=== PATIENT | female | born 2005 | race Caucasian/White ===

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

== ENCOUNTER 2024-12-07 08:51 | Emergency (ER) | payer OTHER, SELFPAY ==
--- OUTSIDE RECORDS SUMMARY | 2009-01-04 04:00 | XMS_ITS | Continuity of Care Document ---
Author Organization [facility] Address [address] [place] [address] [address] [place] [address] Phone Care Team Providers Care Side Guider Name Role Phone Guzmán OD, Saroj Unavailable Unavailable Procedures Procedure Date Eye Exam & Treatment Refraction Advance Directives Directive Yes / No Effective Date File Name No Information Encounters Encounter Description Practice Location Reason(s) For Visit Diagnoses Date Provider Providers Copied on Encounter [facility], [id number] [place] [address] [address], [place], [place], [id number], [place] tel:[phone] SEC [facility] No Information [phone] Guzmán OD Saroj. [address] [facility] [address] , [address], [place], [address], [place]. tel:[phone] Family History Family Member Type Diagnosis Age At Onset No Information Payers Payer name Insurance type Covered constitution party ID Authoriza tion(s) Medicaid [facility] [id number] Social History Type Description Quantity Date Captured Comments Sex Female Smoking Status No Information Chief Complaint And Reason For Visit No Information Reason For Referral Reason For Referral No Information History Of Present Illness Encounter Date Complaint History Of Prese nt Illness No Information Functional Status Date Functional Assessmen t No Information Instructions Date Instruction Additional Infor mation No Information Assessments Type Assessment Date No Information Patient Care Teams Name Effective Dates (start - stop) Status Members No Information
[2024-12-07 09:01] VITALS: BP 132/84; PULSE 76; RESP 15; TEMP 36.4; O2SAT 99
--- OUTSIDE RECORDS SUMMARY | 2024-12-07 09:11 | XMS_ITS | Clinical Summary ---
Author Organization [facility] Address [address] [place] [address] Care Team Providers Care Cash Office Worker Name Role Phone Maxine Feldman Bartolome HORNER-MANAGER BUSINESS Primary Care Provider + Source Comments [facility],non-owned Affiliates and Associated Physician Practices is amultiple site organization consisting of ambulatory clinics and hospital sitesin [place], [place], [place] and [place]. This disclosure is being madepursuant to the Care Everywhere program and may not contain all information available regarding this patient. Last updated 17.[facility] Allergies Active Allergy Reactions Criticality Noted Date Comments Sulfamethoxazole W-Trimethoprim Rash Low 09/2011 Medications * Be aware that medications may not be up to date on this document. Alwaysverify current medications with the patient. acetaminophen (TYLENOL) 500 MG tablet Take 1 Tab by mouth every 4 hours as needed for Fever or Pain Maximum allowable Acetaminophen amount = 4 Grams (4000 mg) / 24 hours. 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 syndrome 06/05/2015 Contusion of foot, right 12/16/2014 Fracture of fifth metatarsal bone 02/15/2014 Nondisplaced fracture of fifth right metatarsal bone 01/25/2014 Fever 04/16/2011 Bilateral anterior knee pain Patellofemoral stress syndrome of both knees Acute pain of both knees Family History Medical History Relation Name Comments Rheumatological Disease Maternal Grandmother Arrhythmia Mother svt Rheumatological Disease Mother CVA<55(male) Neg Hx CVA<65(female) Neg Hx Cardiomyopathy Neg Hx Congenital Heart defect Neg Hx Heart Surgery Neg Hx Long QT Syndrome Neg Hx NV<55(male) Neg Hx NV<65(female) Neg Hx Marfan Syndrome Neg Hx Pacemaker Neg Hx Sudd. <30 Neg Hx Relation Name Status Comments Maternal Grandmother Mother Social History Tobacco Use Types Packs/Day Years Used Date Smoking Tobacco: Never Smokeless Tobacco: Never Alcohol Use Standard Drinks/Week Comments No 0 (1 standard drink = 0.6 oz pur e alcohol) Comments No Sex and Gender Information Value Date Recorded Sex Assigned at Not on file Legal Sex Female 1:06 PM STAFF PHYSICAL THERAPY ASSISTANT Gender Identity Not on file Sexual Orientation Not on file Last Filed Vital Signs Vital Sign Reading Time Taken Comments Blood Pressure 97/57 04/06/2017 2:35 AM STAFF PHYSICAL THERAPY ASSISTANT Pulse 98 04/06/2017 2:35 AM STAFF PHYSICAL THERAPY ASSISTANT Temperature 37 C (98.6 F) 04/06/2017 2:35 AM STAFF PHYSICAL THERAPY ASSISTANT Respiratory Rate 18 04/06/2017 2:35 AM STAFF PHYSICAL THERAPY ASSISTANT Oxygen Saturation 100% 12/15/2014 11:29 AM CDT Inhaled Oxygen Concentration - - Weight 58.7 kg (129 lb 6.6 oz) 04/06/2017 12:41 AM STAFF PHYSICAL THERAPY ASSISTANT Height 146 cm (4' 9.48) 08/04/2015 9:57 AM CDT Body Mass Index - - Plan of Treatment Health Maintenance Due Date Last Done Comments HIV SCREENING 07/17/2018 HPV VACCINE (1 - 3-dose series) 07/17/2018 CHLAMYDIA/GONORRHEA SCREENING 2019 MENINGOCOCCAL (Group B) VACCINE SHARED DECISION-MAKING (1 of 2 - Standard) 2019 HEPATITIS C SCREENING 07/13/2021 DTAP/TDAP/TD VACCINES (1 - Tdap) 07/17/2022 HEPATITIS B VACCINE (1 of 3 - 19+ 3-dose series) 07/17/2022 DEPRESSION SCREENING 03/10/2024 COVID-19 VACCINE (1 - 2023-2 5 season) 2024 INFLUENZA VACCINE (#1) 2024 5, 02/08/2014 ZOSTER VACCINE (1 of 2) 07/17/2053 HIB VACCINE Aged Out No longer eligi ble based on patient's age to complete this topic MENINGOCOCCAL GROUPS A/C/Y/W VACCINE Aged Out No longer eligible b ased on patient's age to complete this topic PNEUMOCOCCAL VACCINE Aged Out No long er eligible based on patient's age to complete this topic Insurance [facility] Care Teams Cash Office Worker Relationship Specialty Start Date End Date Maxine Feldman, MECHANICAL ENGINEERING INTERN-MANAGER BUSINESS [address] [place] [address] [address] [place] [address] PCP - General Nurse Practitioner 01/24/14
--- NOTE | 2024-12-07 09:28 | ED_ITS ---
HPI - URI/Sore Throat General Chief Complaint: Upper Respiratory Infection Stated Complaint: also congested Time Seen by Provider: 12/07/24 09:04 History of Present Illness HPI Narrative: Patient is a 23-year-old female who presents to the ER with complaints of congestion. She reports 2 days ago she woke up with a sore, swollen throat. Patient reports last night she became congested and has had difficulty breathing through her nose. She endorses a history of asthma as a child but those symptoms have resolved in adulthood. Patient denies any recent fevers, shortness of breath, wheezing, or difficulty swallowing. Related Data Home Medications ?Medication ?Instructions ?Recorded ?Confirmed ?Last Taken ?Type aspirin 81 mg chewable tablet 81 mg PO DAILY 05/21/21 05/21/21 05/20/21 History 81 mg folic acid 1 mg tablet 1 mg DAILY 05/21/21 05/21/21 05/20/21 History 1 tablet Allergies Allergy/AdvReac Type Severity Reaction Status Date / Time sulfamethoxazole Allergy Unknown Unknown Verified 12/07/24 09:03 trimethoprim Allergy Unknown Unknown Verified 12/07/24 09:03 Review of Systems Review of Systems: All systems reviewed & are unremarkable except as noted in HPI and below Exam Narrative: GENERAL: Well appearing, well-nourished, non-toxic, in no acute distress. HEAD: Normocephalic, atraumatic. Slightly red throat with no notable edema. NECK: Supple. No adenopathy, no masses. RESPIRATORY: Airway patent, respirations nonlabored. Clear to auscultation bilaterally, no rales, rhonchi, wheezing. CARDIOVASCULAR: Regular rate and rhythm without murmurs, rubs, or gallops. Peripheral pulses 2+ and equal bilaterally. ABDOMINAL: Soft, nontender, nondistended, no hepatosplenomegaly. Normoactive BS. MUSCULOSKELETAL: Moves all extremities. Strength/ROM intact without gross deformities. SKIN: Warm, dry, normal color. No rashes. NEURO: A&O X3. Speech clear. Cranial nerves II-XII intact. No ataxic movements. PSYCHIATRIC: Appropriate mood and affect. Normal interaction. Course Vital Signs Vital signs: Vital Signs Temperature 36.4 C 12/07/24 09:01 Pulse Rate 76 12/07/24 09:01 Respiratory Rate 15 12/07/24 09:01 Blood Pressure 132/84 12/07/24 09:01 Pulse Oximetry 99 12/07/24 09:01 Oxygen Delivery Room Air 12/07/24 09:01 Temperature 36.4 C 12/07/24 09:01 Pulse Rate 76 12/07/24 09:01 Respiratory Rate 15 12/07/24 09:01 Blood Pressure 132/84 12/07/24 09:01 Pulse Oximetry 99 12/07/24 09:01 Oxygen Delivery Room Air 12/07/24 09:01 MDM - URI/Sore Throat MDM Narrative Medical decision making narrative: Patient is a 23-year-old female who presents to the ER with complaints of congestion. She reports 2 days ago she woke up with a sore, swollen throat. Patient reports last night she became congested and has had difficulty breathing through her nose. She endorses a history of asthma as a child but those symptoms have resolved in adulthood. Patient denies any recent fevers, shortness of breath, wheezing, or difficulty swallowing. Labs Ordered: COVID/flu/RSV swab, strep swab Imaging Ordered: None necessary Medications Ordered: None necessary Diagnosis: Upper respiratory infection Patient Education/Shared MDM: Results of lab work shared with patient. Patient strongly advised to maintain hydration status upon discharge and follow-up with her PCP as needed. She will be discharged home with a prescription for Tessalon Perles and a decongestant. Strict return precautions provided. Patient verbalized understanding and is in agreement with plan. Vital signs stable at time of discharge. All questions answered. Differential Diagnosis Differential diagnosis: Likely upper respiratory infection, viral infection, influenza and other (COVID) Lab Data Attestation: I reviewed the patient's lab results. Labs: Lab Results 12/07/24 Range/Units 09:54 Influenza A (RT-PCR) Negative (Negative) Influenza B (RT-PCR) Negative (Negative) RSV (RT-PCR) Negative (Negative) SARS-CoV-2 RNA (RT-PCR) Negative (Negative) Group A Strep (PCR) Not detected (Negative) Discharge Plan Discharge Clinical Impression: Upper respiratory infection Patient Disposition: Home Condition: Stable Instructions: Antibiotic Form, Upper Respiratory Infection (ED) Additional Instructions: Please return to the ER with any worsening symptoms. Follow-up with primary care provider as needed. Take all medications as prescribed, including regularly scheduled medications. You may take Tylenol and/or ibuprofen for pain control. He was been prescribed Tessalon Perles to treat your cough and promethazine D to treat your congestion. Patient Language: Sierra Leonean Prescriptions: New promethazine-DM 6.25-15 mg/5 mL syrup 5 ml PO Q4-6H PRN (Reason: cough) Qty: 473 0RF benzonatate 100 mg capsule 100 mg PO TID Qty: 30 0RF No Action aspirin 81 mg tablet,chewable 81 mg PO DAILY folic acid 1 mg tablet 1 mg DAILY Follow-up/Referrals: PHYSICIAN,KILN MAINTENANCE [Primary Care Provider, Internal Medicine] Renetta Zhou DO [Physician, Family Practice] Referral Note: primary care provider Stand Alone Forms: Work/School Release IP Time of Disposition: 11:00
--- OUTSIDE RECORDS SUMMARY | 2024-12-07 09:36 | XMS_ITS | Clinical Summary ---
Author Organization [facility] Address [address] [place] [address] Care Team Providers Care Talent Advisor Name Role Phone Maxine Feldman Bartolome HORNER-MASTER CARPENTER Primary Care Provider + Source Comments [facility],non-owned Affiliates and Associated Physician Practices is amultiple site organization consisting of ambulatory clinics and hospital sitesin [place], [place], [place] and [place]. This disclosure is being madepursuant to the Care Everywhere program and may not contain all information available regarding this patient. Last updated 17.[facility] Allergies Active Allergy Reactions Criticality Noted Date [...] Neg Hx Long QT Syndrome Neg Hx ND<55(male) Neg Hx ND<65(female) Neg Hx Marfan Syndrome Neg Hx Pacemaker [...] on file Legal Sex Female 1:06 PM HAND MODEL Gender Identity Not on file Sexual Orientation Not on file Last Filed Vital Signs Vital Sign Reading Time Taken Comments Blood Pressure 97/57 04/06/2017 2:35 AM HAND MODEL Pulse 98 04/06/2017 2:35 AM HAND MODEL Temperature 37 C (98.6 F) 04/06/2017 2:35 AM HAND MODEL Respiratory Rate 18 04/06/2017 2:35 AM HAND MODEL Oxygen Saturation 100% 12/15/2014 11:29 AM CDT Inhaled Oxygen Concentration - - Weight 58.7 kg (129 lb 6.6 oz) 04/06/2017 12:41 AM HAND MODEL Height 146 cm (4' 9.48) 08/04/2015 9:57 [...] patient's age to complete this topic Insurance [facility] Care Teams Talent Advisor Relationship Specialty Start Date End Date Maxine Feldman, NETWORK SECURITY OFFICER-MASTER CARPENTER [address] [place] [address] [address] [place] [address] PCP - General Nurse Practitioner 01/24/14
[2024-12-07 10:33] LABS: Strep Group A RT-PCR NOT DETECTED (Negative)
[2024-12-07 10:46] LABS: Influenza A QL RT-PCR Negative (Negative); Influenza B QL RT-PCR Negative (Negative); RSV RNA, RT-PCR Negative (Negative); SARS-CoV-2 RNA PCR Negative (Negative)
[2024-12-07 11:28] VITALS: BP 130/82; PULSE 80; RESP 16; O2SAT 98
== END 2024-12-07 11:29 | disposition home or self-care (01) ==
PROVIDERS: Emergency Provider Registered Nurse
DX: J06.9 Acute upper respiratory infection, unspecified (principal); Z20.822 Contact with and (suspected) exposure to COVID-19
CPT/HCPCS: 87637; 87651; 99283